=== PATIENT | male | born 1980 | race African-American/Black ===

== ENCOUNTER 2016-09-03 11:57 | Emergency (ER) | payer OTHER ==
[2016-09-03 12:03] VITALS: BP 129/64; PULSE 71; TEMP 97.5; BMI 29.7
--- NOTE | 2016-09-03 12:27 | PDOC ---
History of Present Illness - General Chief Complaint: Injury Stated Complaint: RT ANKLE INJURY, SWOLLEN Time Seen by Provider: 09/03/16 12:18 History Source: Patient Exam Limitations: No Limitations - History of Present Illness Initial Comments: 09/03/16 18:25 Chief complaint: Right ankle and foot pain with swelling 5 days History of present illness: Pt. is a 35-year-old male with no significant medical history here today complaining of right lateral ankle foot pain 5 days. Patient does not know how he might have injured his foot or ankle. Patient works construction worse heavy boots. He has slight swelling to his right lateral foot and ankle. Patient denies any numbness of foot or ankle. Has not taken anything for pain today. Occurred: reports: other (5 days ) Severity: Yes: moderate Lower Extremity Pain Location: right: foot, ankle Method of Injury: Yes: unknown Modifying Factors: improves with: None Lower Ext. Injury Location - Specific Injury Location Ankle: right pain, right swelling Foot: right foot pain, right foot swelling Extremity Pain Location - Extremity Pain Location Extremity Pain Locations: right: foot, ankle Past History - Past Medical History Allergies/Adverse Reactions: Allergies Allergy/AdvReac Type Severity Reaction Status Date / Time Penicillins Allergy Swelling Verified 09/03/16 12:03 Home Medications: Ambulatory Orders NK [No Known Home Medication] 09/03/16 Other medical history: NOPNE - Psycho/Social/Smoking Cessation Hx Anxiety: No Suicidal Ideation: No Smoking History: Never smoked Hx Alcohol Use: Yes (SOCIAL) Drug/Substance Use Hx: No Substance Use Type: None Review of Systems - Review of Systems Able to Perform ROS?: Yes Constitutional: No: Symptoms Reported HEENTM: No: Symptoms Reported Respiratory: No: Symptoms reported Cardiac (ROS): No: Symptoms Reported ABD/GI: No: Symptoms Reported : No: Symptoms Reported Musculoskeletal: Yes: Joint Pain (rt. ankle/lateral foot ), Joint Swelling (rt. lateral ankle/foot ) Integumentary: No: Symptoms Reported Neurological: No: Symptoms reported *Physical Exam - Vital Signs Last Vital Signs Temp Pulse Resp BP Pulse Ox 97.5 F L 71 20 129/64 99 09/03/16 11:59 09/03/16 11:59 09/03/16 11:59 09/03/16 11:59 09/03/16 11:59 - Physical Exam General Appearance: Yes: Appropriately Dressed Vascular Pulses: Dorsalis-Pedis (R): 4+ Extremity: positive: Normal Capillary Refill, Normal Range of Motion (rt. ankle/ foot ), Tender (rt. lateral/medial ankle/foot ), Swelling (rt. ankle/foot laterally ) Integumentary: positive: Normal Color Neurologic: positive: Normal Response, Respond to painful stimul, Responsive. negative: Numbness, Sensory Deficit Deep Tendon Reflexes: Ankle (R): 4+ (negative [place] ) Procedures - Consent Consent obtained: From Patient - Splinting Splint Location: Right: Foot, Ankle Pre-Proc Neuro Vasc Exam: normal Juan F Bandage: 3" Complications: No Progress: 09/03/16 13:10 crutches given - Additional Procedures Progress: 09/03/16 13:11 09/03/16 13:11 09/03/16 18:28 Medical Decision Making - Medical Decision Making 09/03/16 13:11 Pt. is a 35-year-old male with no significant medical history here today complaining of right lateral ankle foot pain 5 days. Patient does not know how he might have injured his foot or ankle. Patient works construction worse heavy boots. He has slight swelling to his right lateral foot and ankle. Patient denies any numbness of foot or ankle. Has not taken anything for pain today. Ankle foot sprain Plan: X-ray right ankle foot negative for fracture Juan F wrap 3 inch and Aircast applied to right ankle foot Ibuprofen 600 mg by mouth given Patient to follow up with [facility] for further evaluation 09/03/16 18:27 09/03/16 18:28 *DC/Admit/Observation/Transfer Diagnosis at time of Disposition: Sprain of foot, right Qualifiers: Encounter type: initial encounter Qualified Code(s): S93.601A - Unspecified sprain of right foot, initial encounter Sprain of ankle, right Qualifiers: Encounter type: initial encounter Involved ligament of ankle: unspecified ligament Qualified Code(s): S93.401A - Sprain of unspecified ligament of right ankle, initial encounter - Discharge Dispostion Disposition: HOME Condition at time of disposition: Stable - Referrals Referrals: Parvin Nix [Primary Care Provider] - Gab Coughlin MD [Staff Physician] - - Patient Instructions Additional Instructions: Elevate right leg as much as possible Take ibuprofen as 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
[2016-09-03] MEDS ORDERED: IBUPROFEN 600 MG TABLET (FP) PO ONE ×2 (13:03→13:10)
== END 2016-09-03 13:28 | disposition home or self-care (01) ==
LOC: JERFT 11:57
PROC: 2W3SX1Z Immobilization of Right Foot using Splint (ICD-10-PCS; principal; 2016-09-03)
DX: S93.601A Unspecified sprain of right foot, initial encounter (principal); S93.401A Sprain of unspecified ligament of right ankle, initial encounter
CPT/HCPCS: 29515; 73610-TC-RT; 73630-TC-RT; 99281-25